=== PATIENT | female | born 1970 | race Caucasian/White ===

== ENCOUNTER 2017-01-17 14:30 | Emergency (ER) | payer BC ==
--- NOTE | 2017-01-24 16:05 | ER ---
ADMIT: 01/17/2017 RM/LOC: ER [facility] MR#: [id number] [facility] [address] [place], [place] [id number] [address] [place] [address] Emergency Room Report SEX: F AGE: 46 : 1970 DATE: 01/17/2017 HISTORY OF PRESENT ILLNESS: female, 46-year-old patient of Dr. Crowell, presents to the emergency room with palpitations for 1 day. She works at [employer] and she was there with some tachycardia. She was advised to come in to get evaluated. She denies drinking alcohol or coffee or tea excessively. She has not been ill, this started recently. PAST MEDICAL HISTORY: Positive for hypertension, shoulder injury. She has had two C sections. MEDICATIONS: She takes: 1. Lisinopril. 2. Ibuprofen. 3. Meclizine. ALLERGIES: SHE IS ALLERGIC TO BENADRYL. PHYSICAL EXAMINATION: GENERAL: A well-nourished and well-developed female. Alert and oriented. She seems to be comfortable but as I am talking to her, I can see the irregular PVCs in the EKG. on physical examination. No chest pain, moderate anxiety, but patient is in no distress. VITAL SIGNS: Her blood pressure 138/61 with MAP of 79, pulse is 81, respirations 16, temp is 99, O2 sats 100%. CVS: Regular with some extra beats. SKIN: Good color and turgor. EXTREMITIES: Nontender. NEUROLOGIC: Oriented x4. Mood and affect are appropriate. at bedside. TSH 1.6. Normal troponin at 0.015. Chemistry normal. CBC normal. EKG PVCs at 93 beats per minute. CLINICAL IMPRESSION: Palpitations. Consulted Dr. Trevino, advises a Holter monitor. The patient will be going home with a Holter monitor, 48 hours. The patient discharged. ONDINA Richard / Shaquille Trevino MD / carly JOB #: [id number] CC: Shaquille Trevino MD, Attending Physician Cristino Crowell MD, Family Physician
== END 2017-01-17 17:51 | disposition home or self-care (01) ==
LOC: ER 14:30
DX: R00.2 Palpitations (principal); Z79.899 Other long term (current) drug therapy; Z88.6 Allergy status to analgesic agent; Z91.013 Allergy to seafood